=== PATIENT | female | born 2000 | race Caucasian/White ===

== ENCOUNTER 2022-06-05 20:08 | Emergency (ER) | payer SELFPAY ==
[~2022-06-05] VITALS: Ht 167.6 cm; Wt 80.0 kg
[2022-06-06 00:35] VITALS: BP 113/63
== END 2022-06-06 00:40 | disposition home or self-care (01) ==
LOC: EDBD 20:08 → ER 20:08
DX: F10.129 Alcohol abuse with intoxication, unspecified (principal); Y90.0 Blood alcohol level of less than 20 mg/100 ml; R47.81 Slurred speech
CPT/HCPCS: 82962; 99283